=== PATIENT | male | born 1945 | race Caucasian/White ===

== ENCOUNTER 2020-03-18 13:54 | Outpatient (CLI) | payer OTHER, SELFPAY ==
--- NOTE | 2020-03-18 15:00 | US_ITS ---
WS: [id number] TESTICULAR ULTRASOUND HISTORY: SCROTAL HERNIA COMPARISON: None available. TECHNIQUE: Real-time and color Doppler imaging or utilized to perform a testicular ultrasound. Right testicle: 3.7 cm x 2.5 cm x 1.6 cm. Normal sized testicle with mild heterogeneity. No discrete mass. Normal color Doppler is present throughout. Systolic and diastolic velocities are both present. No significant hydrocele. Right epididymis: Enlarged epididymis without increased vascularity. There is a small cyst in the epi didymal head. Left testicle: 3.8 cm x 2.0 cm x 2.5 cm. Heterogeneity throughout the testicle. There is normal vascularity. Testicle is being displaced poste riorly and inferiorly by a large hydrocele. Small cyst within the epididymal head. Adjacent and superior to the LEFT testicle is an area of increased echogenicity which is thought to b e omental fat herniating through the inguinal canal. No peristalsing loops of bowel. Left epididymis: Normal epididymis with no increased vascularity. US/US scrotum [id number] IMPRESSION: 1. Large LEFT hydrocele. 2. Findings suspicious for LEFT inguinal hernia containing fat only. No perist alsing loops of bowel into the scrotal sac. 3. Heterogeneity of both testicles probably from prior episodes of infection.
== END 2020-03-18 13:55 | disposition home or self-care (01) ==
LOC: RAD 13:58
PROVIDERS: PCP Physician Assistant Medical; Visit Provider Physician Assistant Medical
DX: K40.90 Unilateral inguinal hernia, without obstruction or gangrene, not specified as recurrent (principal); N43.3 Hydrocele, unspecified
CPT/HCPCS: 76870

== ENCOUNTER 2020-12-17 08:08 | Outpatient (CLI) | payer OTHER, SELFPAY ==
--- NOTE | 2020-12-17 08:34 | US_ITS ---
WS: [id number] ULTRASOUND RENAL TECHNIQUE: Ultrasound examination of both kidneys. CLINICAL INFORMATION: URINARY TRACT INFECTION;KIDNEY STONE;HEMATURIA COMPARISON: None. FINDINGS: Technically difficult examination due to bowel gas. Multiple simple bilateral renal cysts. Largest on the right measures 5.9 x 5.3 x 5.5 cm upper pole ri ght kidney which has a simple appearance. RIGHT: Right kidney is normal in size and appearance. Echogenicity: Normal. Cortical thickness: 1.3 cm; Normal. Hydronephrosis: None. Perinephric fluid: None. Right kidney measures: 12.8 cm x 5.1 cm x 6.2 cm. LEFT: Left kidney is normal in size and appearance. Echogenicity: Normal. Cortical thickness: 1.3 cm; Normal. Hydronephrosis: None. Perinephric fluid: None. Left kidney measures: 14.7 cm x 4.2 cm x 6.3 cm. Normal visualized aorta. Bladder wall thickening. Enlarged prostate measuring 5.4 x 5.2 x 6.1 cm US/US renal BI* [id number] IMPRESSION: 1. Multiple bilateral renal cysts which have a simple appearance. The largest measuring 5.9 x 5.3 x 5.5 cm upper pole right kidney which has a simple appeara nce. 2. Largest cyst left kidney measures 3.1 x 2.8 x 3.1 cm which also has a simpl e appearance. 3. Enlarged prostate measuring 5.4 x 5.2 x 6.1 cm. Thickened bladder wall susp icious for bladder outlet obstruction. Recommend correlation PSA.
== END 2020-12-17 08:09 | disposition home or self-care (01) ==
LOC: RAD 08:14
PROVIDERS: PCP Physician Assistant Medical; Visit Provider Nurse Practitioner Family
DX: N39.0 Urinary tract infection, site not specified (principal); N20.0 Calculus of kidney; R31.29 Other microscopic hematuria; N40.0 Benign prostatic hyperplasia without lower urinary tract symptoms
CPT/HCPCS: 76770

== ENCOUNTER 2021-03-26 09:26 | Outpatient (CLI) | payer OTHER, SELFPAY ==
--- NOTE | 2021-03-26 09:35 | CT_ITS ---
WS: [id number] CT UROGRAM WITH AND WITHOUT CONTRAST HISTORY: UTI, SITE NOT SPECIFIED ; HYDROCELE CT UROGRAM TECHNIQUE: Unenhanced 5 mm axial imaging first performed through the abdomen. Post contrast imaging t hrough the abdomen and pelvis. Oral contrast has not been provided. Sagittal and coronal reformats a re submitted. All CT scans at [facility] use at least one of these dose optimization tech niques: automated exposure control; mA and/or kV adjustment per patient size (includes targeted exams where dose is matched to clinical indication); or iterative reconstruction. CONTRAST: Omnipaque 300; 95 mL IV. DLP: 4295.76 mGy.cm COMPARISON: None available. Chronic interstitial thickening at the lung bases. Lungs are hyperinflated. No pneumonia. No effusion . Moderate enlargement of the heart. Small hiatal hernia. RIGHT kidney: 14.1 cm in length. Multiple cysts are present within the renal cortex. The largest fro m the upper pole measures 7.0 x 5.8 cm. There is additional cortical thinning and additional cysts th roughout the cortex. Nonobstructing 6 mm calcification in the lower pole. Additional 2 mm calcificati on in the upper pole. There is good filling of the ureter and renal pelvis with contrast. No filling defects are evident. There is very mild narrowing of the distal RIGHT ureter as it enters the urinary bladder. LEFT kidney: 14.2 cm in length. Mild perinephric stranding and mild cortical thinning. Small parapelv ic cysts. Cyst in the lower pole cortex measures 3.1 x 2.2 cm. No uroepithelial filling defects. Good distention of the ureter with the exception of a short segment at the pelvic brim and distal ureter. Good distention of the urinary bladder on the delayed images. There is mild bladder wall thickening. Prostate gland is enlarged encroaching into the urinary bladder. Prostate measures at least 6.2 x 6.3 cm. There is contrast extending into the prostatic portion of the urethra. Normal size liver. No bile duct dilatation. Tricuspid regurgitation into hepatic veins is noted. Norm al portal vein. Normal gallbladder with calcification. Spleen and pancreas are unremarkable. No adren al mass. Numerous diverticula throughout the colon and diffuse constipation. No evidence for acute di verticulitis or obstruction of the GI tract. Abdominal wall hernia contains fat only. Orifice of the hernia is 2.9 cm. No ascites or adenopathy. Moderate degenerative disc disease and facet joint arthritis throughout the lumbar spine. No fracture s or bone destruction. CT/CT abdomen pelvis wo/w [id number] IMPRESSION: 1. Mild bilateral cortical thinning and bilateral renal cysts as described abo ve. 2. Nonobstructing renal calculi RIGHT kidney with the largest in the lower fuad e measuring 6 mm. 3. No uroepithelial filling defects within the ureters. 4. Marked prostate gland enlargement encroaching into the urinary bladder. Cor relate with biochemical markers for prostate cancer. There is mild bladder wall thickening which may be due to chronic outlet obstruction. Contrast extends in to a dilated prostate urethra. 5. Cholelithiasis without acute cholecystitis. 6. Extensive colonic reticulosis without diverticulitis. 7. Mild atherosclerosis aorta with no aneurysm.
[2021-03-26] MEDS: iohexol 300 mg/mL 100 mL Btl IV (11:09)
== END 2021-03-26 09:27 | disposition home or self-care (01) ==
LOC: CT 09:28
PROVIDERS: PCP Physician Assistant Medical; Visit Provider Nurse Practitioner Family
DX: N39.0 Urinary tract infection, site not specified (principal); N43.3 Hydrocele, unspecified; I70.0 Atherosclerosis of aorta; K80.20 Calculus of gallbladder without cholecystitis without obstruction; N40.0 Benign prostatic hyperplasia without lower urinary tract symptoms; N20.0 Calculus of kidney; Q61.02 Congenital multiple renal cysts
CPT/HCPCS: 74178; 82565